=== PATIENT | female | born 1960 | race Caucasian/White ===

== ENCOUNTER 2019-07-06 21:53 | Emergency (ER) | payer OTHER ==
[~2019-07-06] VITALS: Ht 160 cm; Wt 51.7 kg
[2019-07-06 22:34] VITALS: BP_SYST 142
--- NOTE | 2019-07-06 22:34 | NUR ---
Patient to ER H1 to gown for evaluation. Side rails up.
--- NOTE | 2019-07-06 22:37 | NUR ---
ER Dr. Oropeza at bedside examining patient.
[2019-07-06 22:58] VITALS: BP_SYST 142
--- NOTE | 2019-07-06 22:58 | NUR ---
Patient given written and verbal discharge instructions and verbalizes understanding. ER MD discussed with patient the results and treatment provided. Patient in stable condition. ID arm band removed. No Rx given. Patient educated on pain management and to follow up with PMD. Pain Scale 0. Opportunity for questions provided and answered. Medication side effect fact sheet provided.
== END 2019-07-06 22:58 | disposition home or self-care (01) ==
LOC: SED 21:53
DX: S00.03XA Contusion of scalp, initial encounter (principal); R03.0 Elevated blood-pressure reading, without diagnosis of hypertension; V48.4XXA Person boarding or alighting a car injured in noncollision transport accident, initial encounter; Y93.89 Activity, other specified; Y92.410 Unspecified street and highway as the place of occurrence of the external cause; Y99.8 Other external cause status
CPT/HCPCS: 99281; 99283